=== PATIENT | female | born 1960 | race Caucasian/White ===

== ENCOUNTER 2019-09-03 12:06 | Emergency (ER) | payer OTHER, SELFPAY ==
--- NOTE | ~2019-09-03 | XR_ITS ---
EXAMINATION: XR shoulder LT min 2V DATE: 09/03/2019 12:51 INDICATION: Nontraumatic left shoulder pain TECHNIQUE: AP internally and externally rotated, AP oblique externally rotated and axillary views of the left shoulder were obtained. COMPARISON: None FINDINGS: Normal alignment. No fracture.Glenohumeral joint space appears relatively preserved however there ar e small marginal osteophyte along the posterior and inferior glenoid consistent with mild osteoarthri tis. Mild to moderate acromioclavicular osteoarthritis with small inferiorly directed osteophytes. Pr ominent globular regions of amorphous calcification projecting over the mid to posterior greater tube rosity consistent with likely calcific tendinitis likely of the distal infraspinatus and possibly ter es minor tendons. Visualized portions of the left lung are clear. IMPRESSION: 1. Left glenohumeral calcific tendinitis. 2. Mild left glenohumeral and mild to moderate acromioclavicular osteoarthritis. Reviewed, dictated and finalized at location A. IMPRESSION: 1. Left glenohumeral calcific tendinitis. 2. Mild left glenohumeral and mild to moderate acromioclavicular osteoarthritis .
--- NOTE | 2019-09-03 12:10 | ED.GENADULT ---
HPI - General Adult General Chief complaint: Extremity Injury, Upper Stated complaint: left shoulder pain Time Seen by Provider: 09/03/19 12:31 Source: patient Mode of arrival: ambulatory Limitations: no limitations History of Present Illness HPI narrative: 58-year-old female patient presents to the [facility] with complaints of left shoulder pain. Patient states that she has had some aching pain in her left shoulder for the last 8 months however yesterday when she went to go and reach for a glass of water the pain increased significantly. Patient states that she was not able to lay on her shoulder last night while sleeping. Patient states that she did try and take some Advil for the pain. Patient states she is unable to lift her arm above her shoulder. Related Data Home Medications Medication Instructions Recorded Confirmed clonazepam 04/19/19 glimepiride mg 04/19/19 insulin lispro protamin-lispro SUBCUT 04/19/19 [Humalog Mix 75-25(U-100)Insuln] levothyroxine [Synthroid] 04/19/19 simvastatin mg 04/19/19 losartan 09/03/19 nicotine 09/03/19 pioglitazone mg 09/03/19 Allergies Allergy/AdvReac Type Severity Reaction Status Date / Time Ldjcddw-Aue-Pck Reductase Allergy Unknown myopathy Verified 12/04/15 15:50 Inhibitor abx Allergy Hives Uncoded 04/19/19 12:22 Review of Systems Review of Systems: Narrative: CONSTITUTIONAL: Denies fever, chills, or sweats. EYES: Denies visual changes, redness, or discharge. ENT: Denies rhinorrhea, congestion, sore throat, or otalgia. CARDIOVASCULAR: Denies chest pain, palpitations, or edema. RESPIRATORY: Denies cough or dyspnea. GASTROINTESTINAL: Denies abdominal pain, nausea, vomiting, or diarrhea. GENITOURINARY: Denies dysuria or hematuria. SKIN: Denies rash or itching. MUSCULOSKELETAL: Denies back pain, joint pain, or myalgia. Positive left shoulder pain NEUROLOGIC: Denies headache, numbness, or weakness. PSYCHIATRIC: Denies anxiety or depression. [facility] Family History Family History Mother Depression Hypertension Family history of type 2 diabetes mellitus, Onset Age: 69 Social History Social History (Reviewed 09/03/19 @ 12:11 by SHAYLA Nation Smoking status: Heavy tobacco smoker Alcohol intake: never Comments At the time of my signature I agree with nursing past medical history, surgical, social, and family history. There is no relevant family history pertinent to the presenting complaint. Exam Narrative: Exam Narrative: GENERAL: Well-appearing, well-nourished, and in no acute distress. HEAD: Normocephalic, atraumatic. EYES: PERRLA and EOMI. ENT: Nares clear, no rhinorrhea or epistaxis. Mucous membranes moist. NECK: Supple. No lymphadenopathy CHEST: Clear to auscultation. No respiratory distress. HEART: Regular rate and rhythm. No murmur heard. Normal peripheral pulses. ABDOMEN: Soft, nontender, nondistended, normal active bowel sounds. EXTREMITIES: The L shoulder is without obvious asymmetry or deformity when compared to the R shoulder. No surface trauma, ecchymosis, crepitus. No bony deformity or prominence of the humeral head No erythema, warmth, swelling. tenderness to palpation to A to C joint, and humeral head. No tenderness to palpation of the bicipital groove or soft tissues. tenderness to palpation of the muscles of the biceps/triceps, deltoid, and rotator cuff. pain and limitation with active o abduction/adduction and flexion/extension. Unable to perform empty can and drop arm test (rotator cuff). No axillary tenderness or lymphadenopathy. Normal sensation over the deltoid and ability to flex arm at elbow indicates intact axillary nerve function. Distal motor and neurovascular status is intact. SKIN: Warm, dry, no rash. NEURO: No focal deficits. Alert and oriented x3. Course Reevaluation(s) Reevaluation #1: Reevaluated patient after her x-ray had resulted. Notified
[2019-09-03 12:23] VITALS: BP 149/82; PULSE 99; RESP 16; TEMP 36.7; O2SAT 100
== END 2019-09-03 13:15 | disposition home or self-care (01) ==
PROVIDERS: Emergency Provider Nurse Practitioner Family; PCP Family Medicine
DX: M75.22 Bicipital tendinitis, left shoulder (principal); F17.200 Nicotine dependence, unspecified, uncomplicated
CPT/HCPCS: 73030; 99213; A4565; G0463

== ENCOUNTER 2020-01-27 10:21 | Emergency (ER) | payer OTHER, SELFPAY ==
[2020-01-27 10:37] VITALS: BP 176/85; PULSE 81; RESP 16; TEMP 36.7; O2SAT 98
--- NOTE | 2020-01-27 11:00 | ED.GENADULT ---
HPI - General Adult General Chief complaint: Unspecified Stated complaint: HBP Source: patient and RN notes reviewed Mode of arrival: ambulatory Limitations: no limitations History of Present Illness HPI narrative: This is a 59-year-old white female that presented to the urgent care today with complaints of increased blood pressure. According to patient she caught her primary care physician's office yesterday after taking her blood pressure reading which was 202/150 at time her doctor instructed her to go to the ED. Patient did proceed to [facility] ED. Patient is unsure of her blood pressure reading at that time but she noted that [facility] gave her to p.o. she is unsure about the dose given to her. Took her blood pressure again this morning with the blood pressure reading being 180/110 once again she called her doctor's office and they informed her to go to the ED. patient had a bad experience at [facility] ED and decided to come here to our urgent care. Patient's blood pressure reading here 176/85 and then again 160/81. Patient will receive clonidine 0.1 one-time at this time. She was instructed to follow-up with her primary care physician so that her home medications can be adjusted I also suggested that she discard the wrist blood pressure cuff and purchase a blood pressure cuff that goes around her upper arm. I believe that her wrist blood pressure cuff is inaccurate. Patient's other related symptoms are headache that she contributed to her sinuses and fatigue. Patient notes that she is often fatigued but get more fatigue when her blood pressure is increased. She denies any visual disturbance , SOB, CP, palpitation, extremity numbness, lightheadedness, dizziness, constipation, diarrhea, chills, or fever. Related Data Home Medications Medication Instructions Recorded Confirmed Humalog Mix 75-25(U-100)Insuln SUBCUT 04/19/19 clonazepam 04/19/19 glimepiride mg 04/19/19 levothyroxine [Synthroid] 04/19/19 simvastatin mg 04/19/19 aspirin 01/27/20 metoprolol succinate PO 01/27/20 omeprazole 01/27/20 Allergies Allergy/AdvReac Type Severity Reaction Status Date / Time Jklbyib-Ilu-Nle Reductase Allergy Unknown myopathy Verified 12/04/15 15:50 Inhibitor abx Allergy Hives Uncoded 04/19/19 12:22 Review of Systems Review of Systems: All systems reviewed & are unremarkable except as noted in HPI and below (12 point system review) [facility] Social History Social History Smoking status: Heavy tobacco smoker Alcohol intake: never Exam Narrative: Exam Narrative: GENERAL: This is a well-nourished, well-developed patient, in no apparent distress. HEAD: normocephalic, atraumatic. EYES: PERRL. Sclera clear/white. Vision is grossly intact. EARS: External ears normal, auditory canals clear and without drainage, TMs normal without perforation. Hearing grossly intact. NOSE: External nose normal with no obvious nasal discharge, nares without redness, no rhinorrhea. THROAT: Mucous membranes moist, posterior pharynx clear. NECK: Neck supple, non-tender without lymphadenopathy, masses or thyromegaly. CARDIOVASCULAR: Regular rate and rhythm without murmurs, gallops, or rubs. RESPIRATORY: Clear to auscultation. Breath sounds equal bilaterally. No wheezes, rales, or rhonchi. GASTROINTESTINAL: Abdomen soft, non-tender, nondistended. Bowel sounds are active. No hepato-splenomegaly, or palpable masses. No guarding. SKIN: warm, intact with no suspicious lesions or rash, good texture and turgor. NEURO: awake, alert, and oriented to person, place and time. There were no obvious focal neurologic abnormalities. Steady gait EXTREMITIES: Normal range of motion. No edema. No calf tenderness. Negative Homans sign bilaterally. BACK: Nontender without deformity or crepitance. No flank tenderness. Course Course Emergency Course: Patient received clonidine 0.1 mg 1 ti
[2020-01-27 11:04] VITALS: BP 160/81; PULSE 80; RESP 16; O2SAT 100
[2020-01-27] MEDS: cloNIDine HCL 0.1 MG TABLET PO (11:10)
--- NOTE | 2020-01-27 11:25 | PC.NURSE ---
at 1100 was moved to rm 1 for comfort and monitoring.
[2020-01-27 11:28] VITALS: BP 164/91; PULSE 74; RESP 16; O2SAT 100
[2020-01-27 11:50] VITALS: BP 162/91; PULSE 72; RESP 16; O2SAT 100
== END 2020-01-27 11:50 | disposition home or self-care (01) ==
PROVIDERS: Emergency Provider Nurse Practitioner; PCP Family Medicine
DX: I10 Essential (primary) hypertension (principal); E78.00 Pure hypercholesterolemia, unspecified; K21.9 Gastro-esophageal reflux disease without esophagitis; E11.9 Type 2 diabetes mellitus without complications; E03.9 Hypothyroidism, unspecified
CPT/HCPCS: 99213; A9270; G0463

== ENCOUNTER 2020-02-16 09:12 | Outpatient (CLI) | payer OTHER, SELFPAY ==
--- NOTE | ~2020-02-16 | XR_ITS ---
XR hand RT 2V, XR hand LT 2V 02/16/2020 09:37 Indication: Arthralgias. Fatigue. Procedure: 2 views each hand Comparison: No prior studies for comparison. Findings: There is moderate polyarticular osteoarthritis of the hands and wrists involving the trisca phe, first CMC, first MCP and interphalangeal joints. Degenerative changes most advanced at the right third PIP and DIP joints. No erosive changes. No fracture or traumatic malalignment. Impression: 1: Moderate polyarticular osteoarthritis of the hands. Reviewed, dictated and finalized at location B. Impression: 1: Moderate polyarticular osteoarthritis of the hands. Impression: 1: Moderate polyarticular osteoarthritis of the hands.
--- NOTE | ~2020-02-16 | XR_ITS ---
XR foot RT min 3V, XR foot LT min 3V 02/16/2020 09:37 Indication: Arthralgia, fatigue Procedure: 4 views each foot Comparison: No prior studies for comparison. Findings: There is bilateral osteoarthritis of the first MTP joints, right greater than left. Lisfran c joint intact. There are small degenerative calcaneal enthesophytes. No foreign bodies. No fracture or traumatic malalignment. Impression: 1: Bilateral osteoarthritis of the MTP joints. Reviewed, dictated and finalized at location B. Impression: 1: Bilateral osteoarthritis of the MTP joints. Impression: 1: Bilateral osteoarthritis of the MTP joints.
== END 2020-02-16 09:13 | disposition home or self-care (01) ==
PROVIDERS: PCP Family Medicine
DX: R53.83 Other fatigue (principal); K13.79 Other lesions of oral mucosa; M19.071 Primary osteoarthritis, right ankle and foot; M19.072 Primary osteoarthritis, left ankle and foot; M19.041 Primary osteoarthritis, right hand; M19.042 Primary osteoarthritis, left hand
CPT/HCPCS: 73120; 73630

== ENCOUNTER 2020-03-07 16:15 | Emergency (ER) | payer OTHER, SELFPAY ==
--- NOTE | 2020-03-07 16:56 | PC.NURSE ---
Pt ambulatory to intake desk, states that she's going to go. My complaint isn't that serious, there are people much sicker than me here . Amb to exit without difficulty.
== END 2020-03-07 17:00 | disposition left against medical advice (07) ==
LOC: ANHED 03-08 09:42
DX: Z53.21 Procedure and treatment not carried out due to patient leaving prior to being seen by health care provider (principal)
CPT/HCPCS: 99199

== ENCOUNTER 2020-10-24 14:19 | Outpatient (CLI) | payer OTHER, SELFPAY ==
--- NOTE | ~2020-10-24 | XR_ITS ---
EXAMINATION: XR chest 2V DATE: 10/24/2020 14:48 INDICATION: Chronic shortness of breath. Recurrent oral ulcers. Smoker. TECHNIQUE: Frontal and lateral views of the chest were obtained. COMPARISON: Chest 2 views 11/26/2016 FINDINGS: There is linear atelectasis in left upper lobe. No pneumonia, pleural effusion, or pneumoth orax. The heart size is normal. Surgical clips in the right upper quadrant are likely from cholecyste ctomy. IMPRESSION: 1. Linear atelectasis in left upper lobe. Reviewed, dictated and finalized at location A.
== END 2020-10-24 14:20 | disposition home or self-care (01) ==
PROVIDERS: PCP Family Medicine
DX: K13.79 Other lesions of oral mucosa (principal); R06.00 Dyspnea, unspecified; R53.83 Other fatigue; R91.8 Other nonspecific abnormal finding of lung field
CPT/HCPCS: 71046

== ENCOUNTER 2021-02-20 14:31 | Outpatient (CLI) | payer OTHER, SELFPAY ==
--- NOTE | ~2021-02-20 | US_ITS ---
US thyroid INDICATION: Nontoxic goiter TECHNIQUE: Real-time sonographic images of the thyroid gland were obtained. COMPARISON: No prior studies for comparison. FINDINGS: The right thyroid lobe measures 2.8 x 1 x 0.9 cm. The left thyroid lobe measures 2.6 x 0.9 x 0.9 cm. There is heterogeneous echotexture and echogenicity throughout the thyroid gland. No discr ete nodules identified. Normal vascular flow is present. IMPRESSION: 1. Normal thyroid without discrete nodule or abnormal vascularity. Reviewed, dictated and finalized at location A.
== END 2021-02-20 14:32 | disposition home or self-care (01) ==
PROVIDERS: PCP Family Medicine; Visit Provider Physician Assistant
DX: E04.9 Nontoxic goiter, unspecified (principal)
CPT/HCPCS: 76536

== ENCOUNTER 2022-01-17 14:06 | Outpatient (CLI) | payer OTHER, SELFPAY ==
--- NOTE | ~2022-01-17 | US_ITS ---
US thyroid INDICATION: Thyroid goiter TECHNIQUE: Real-time sonographic images of the thyroid gland were obtained. COMPARISON: Ultrasound dated 02/20/2021 FINDINGS: The right thyroid lobe measures 4 x 1 x 1 cm. The left thyroid lobe measures 3.1 x 1.9 x 0 .9 cm. There is normal echotexture and echogenicity throughout the thyroid gland. In the right lobe t hyroid lobe there is a hypoechoic spongiform mass which is wider than tall, smoothly marginated and n o echogenic foci measuring 10 x 4 x 4 mm, TR 2. Normal vascular flow is present. IMPRESSION: 1. Benign-appearing 1 cm right thyroid mass, TR-2. Reviewed, dictated and finalized at location A.
== END 2022-01-17 14:07 | disposition home or self-care (01) ==
PROVIDERS: PCP Physician Assistant; Visit Provider Physician Assistant
DX: E04.9 Nontoxic goiter, unspecified (principal)
CPT/HCPCS: 76536

== ENCOUNTER 2022-07-10 15:14 | Outpatient (CLI) | payer OTHER, SELFPAY ==
--- NOTE | ~2022-07-10 | US_ITS ---
EXAMINATION: US thyroid DATE: 07/10/2022 15:51 INDICATION: Thyroid nodule. TECHNIQUE: Multiple ultrasound images of the thyroid were obtained. COMPARISON: Ultrasound 01/17/2022, 02/20/21, 11/01/13 FINDINGS: The right thyroid lobe measures 2.6 x 0.8 x 0.9 cm. The left thyroid lobe measures 2.3 x 0.8 x 0.8 c m. The thyroid demonstrates diffusely heterogeneous echogenicity. No discrete nodule. Vascularity is normal. IMPRESSION: 1. Chronically small and heterogeneous thyroid, likely chronic lymphocytic (Debbie) thyroiditis. Reviewed, dictated and finalized at location A. IMPRESSION: 1. Chronically small and heterogeneous thyroid, likely chronic lymphocytic (Has himoto) thyroiditis.
== END 2022-07-10 15:15 | disposition home or self-care (01) ==
PROVIDERS: PCP Physician Assistant; Visit Provider Internal Medicine Endocrinology, Diabetes & Metabolism
DX: E04.1 Nontoxic single thyroid nodule (principal)
CPT/HCPCS: 76536

== ENCOUNTER 2023-03-13 15:00 | Outpatient (CLI) | payer BC, MEDICAID, SELFPAY ==
--- NOTE | ~2023-03-13 | CT_ITS ---
EXAMINATION:CT lung screening DATE: 03/13/2023 15:24 INDICATION: Personal history of nicotine dependence. Current smoker with 51 pack year history. TECHNIQUE: Computed tomography (CT) of the chest was performed without intravenous contrast. Automate d exposure control and iterative reconstruction technique were employed. The dose-length product (DLP ) was 66.04 mGy-cm. COMPARISON: Chest CT 06/14/2016 FINDINGS: There is mild emphysema. There is mild atelectasis bilaterally. There are a few scattered n odules in the lungs measuring up to 4 mm, stable from 06/14/2016. No pleural effusion. Aortic atherosc lerosis is noted. The heart size is normal. There are coronary artery calcifications. No pericardial effusion. There are changes of cholecystectomy. There is mild thoracic spondylosis. IMPRESSION: 1. Lung-RADS category 2: Benign appearance or behavior. Continue annual screening with noncontrast lo w-dose chest CT in 12 months. Reviewed, dictated and finalized at location A. [employer] IMPRESSION: 1. Lung-RADS category 2: Benign appearance or behavior. Continue annual screeni ng with noncontrast low-dose chest CT in 12 months.
== END 2023-03-13 15:01 | disposition home or self-care (01) ==
PROVIDERS: PCP Physician Assistant; Visit Provider Physician Assistant
DX: Z12.2 Encounter for screening for malignant neoplasm of respiratory organs (principal); Z87.891 Personal history of nicotine dependence
CPT/HCPCS: 71271